=== PATIENT | male | born 1945 | race Caucasian/White ===

== ENCOUNTER 2018-01-17 08:56 | Emergency (ER) | payer MEDICARE, OTHER ==
[~2018-01-17] VITALS: Ht 180.3 cm; Wt 95.5 kg
[~2018-01-17 08:56] MED LIST: ASPIRIN EC325 M1 PO; FOLIC ACID1 MG; HYDROCODONE-APA1 TAB PO; OMEPRAZOLE20 M1 PO; PHENERGAN25 M1 PO; PROSCAR5 MG PO; ZESTORETIC 20/11 TAB PO; ZOCOR40 MG PO
[2018-01-17 08:59] VITALS: Ht 180.3 cm; Wt 95.5 kg
[2018-01-17] MEDS ORDERED: BAYER CHEWABLE81 MG PO (09:03)
[2018-01-17 09:35] LABS: BASOPHILS 0.5 % (0-2); EOSINOPHILS 8.5 % (0-7); HEMATOCRIT 41.4 % (42.0-54.0); HEMOGLOBIN 14.6 g/dL (13.5-17.5); IMMATURE GRANULOCYTES 0.4 % (0-5); LYMPHOCYTES 35.2 % (15-50); MCH 31.9 pg (26.0-34.0); MCHC 35.3 g/dL (31.0-37.0); MCV 90.6 fL (80.0-100.0); MEAN PLATELET VOLUME 9.7 fL (7.4-10.4); MONOCYTES 9.1 % (2-11); NEUTROPHILS 46.3 % (40-80); PLATELET COUNT 298 10x3/uL (130-400); RBC 4.57 10x6/uL (4.20-6.10); RDW 12.9 % (11.5-14.5); WBC 9.8 10x3/uL (4.8-10.8)
[2018-01-17 09:47] LABS: APTT 29.6 SECONDS (22.8-39.4); PROTIME 12.8 SECONDS (11.6-15.0)
[2018-01-17 10:16] LABS: ALBUMIN 3.9 g/dL (3.4-5.0); ALKALINE PHOSPHATASE 79 U/L (46-116); ALT (SGPT) 39 U/L (10-68); BILIRUBIN - TOTAL 0.61 mg/dL (0.2-1.3); CALC OSMOLALITY 280 mosm/kg (275-300); CALCIUM 8.8 mg/dL (8.5-10.1); CARBON DIOXIDE 29.2 mmol/L (21.0-32.0); CHLORIDE - SERUM 103 mmol/L (98-107); CREATININE - SERUM 0.9 mg/dL (0.6-1.3); GLUCOSE 106 mg/dL (74-106); POTASSIUM - SERUM 3.9 mmol/L (3.5-5.1); PROTEIN - SERUM 7.3 g/dL (6.4-8.2); SODIUM 140 mmol/L (136-145); UREA NITROGEN 17 mg/dL (7-18); eGFR NON AFRICAN AMERICAN 89 mL/min (90-120)
[2018-01-17 10:30] LABS: APPEARANCE HAZY (CLEAR); COLOR YELLOW (YELLOW); GLUCOSE NEGATIVE (NEGATIVE); KETONE NEGATIVE (NEGATIVE); NITRITE NEGATIVE (NEGATIVE); PROTEIN NEGATIVE (NEGATIVE); UROBILINOGEN NORMAL (NORMAL)
[2018-01-17 10:31] LABS: BILIRUBIN NEGATIVE (NEGATIVE)
[2018-01-17 10:32] LABS: BACTERIA FEW /hpf (NONE SEEN); EPITHELIAL CELLS 0-5 /hpf (0-5); WHITE CELLS - URINE 0-5 /hpf (0-5); YEAST <1+ /hpf (NONE SEEN)
[2018-01-17 12:32] VITALS: BP 125/73
== END 2018-01-17 12:33 | disposition home or self-care (01) ==
LOC: D.ER 08:56
PROVIDERS: Family Medicine
DX: R31.9 Hematuria, unspecified (principal); Z86.73 Personal history of transient ischemic attack (TIA), and cerebral infarction without residual deficits; E07.9 Disorder of thyroid, unspecified; I10 Essential (primary) hypertension

== ENCOUNTER → 2018-03-17 09:04 | Outpatient (CLI) | payer MEDICARE, OTHER ==
[2018-01-17 08:59] VITALS: BMI 29.3
[~2018-03-17 09:04] MED LIST changes: +BAYER CHEWABLE81 MG PO
== END | disposition home or self-care (01) ==
LOC: D.RAD 09:04
DX: R13.10 Dysphagia, unspecified (principal)